=== PATIENT | female | born 1970 | race Caucasian/White ===

== ENCOUNTER 2019-04-17 05:49 | Day surgery (SDC) | payer OTHER ==
[2019-04-17] MEDS ORDERED: Lactated Ringers 1,000 ML IV SCH (07:00)
[2019-04-17] MEDS ORDERED: DIPRIVAN 200 MG/20 ML IV ONE (07:52)
[2019-04-17] MEDS ORDERED: Versed 2 MG/2 ML Injection ONE (07:52)
[2019-04-17 09:06] VITALS: O2SAT 100
[2019-04-17 09:22] VITALS: BP 112/64; PULSE 61
--- NOTE | 2019-04-17 10:36 | OP ---
SURGERY DATE/TIME: 04/17/2019 0754 PREOPERATIVE DIAGNOSIS: Screening exam. POSTOPERATIVE DIAGNOSIS: Normal colon. PROCEDURE: Colonoscopy. SURGEON: Dr. Mendoza. ANESTHESIA: MAC. Medications given by anesthesia department. HISTORY: The patient is a 48 year-old white female presenting now for screening colonoscopy. She was appraised of the risks of the procedure including the risk of perforation, phlebitis, untoward reaction to medication, bleeding and missed lesions. The patient verbalized her understanding and desired to have the procedure performed. DESCRIPTION OF PROCEDURE: The patient was given the medications by the anesthesia department. She had continuous pulse oximetry, ECG monitoring, intermittent blood pressure monitoring and tidal CO2 monitoring during the examination. She was placed in the left lateral decubitus position. A digital rectal examination was performed and revealed normal anal sphincter tone and no masses. External hemorrhoids were present. The flexible Olympus pediatric colonoscope was used to intubate the rectum. A view of the colon was developed sequentially to the cecum. Upon insertion and withdrawal, including a retroflex view in the rectum, no mucosal lesions were encountered. The scope was removed from the patient who tolerated the procedure well and was sent back to OP recovery in good condition. The prep was noted to be fair to good.
== END 2019-04-17 09:05 | disposition home or self-care (01) ==
LOC: SDC 05:49
PROVIDERS: ATTEND Family Medicine
DX: Z12.11 Encounter for screening for malignant neoplasm of colon (principal); K64.4 Residual hemorrhoidal skin tags
CPT/HCPCS: J2250; J2704

== ENCOUNTER 2024-10-07 02:20 | Emergency (ER) | payer SELFPAY ==
--- NOTE | 2024-10-07 02:26 | ERPHSYRPT ---
- History of Present Illness Time Seen by Provider: 10/07/24 02:25 Source: patient, family Exam Limitations: no limitations Physician History: This is a 53-year-old white female patient has a history of atrial fibrillation in the distant past. She states that she has 1-2 episodes per year where she feels palpitations and a "tickling in the throat". Usually it is very brief and short in duration. However she had another episode this morning that has lasted over 2 and half hours. Her heart rate on arrival to the emergency department was 155. We captured twelve-lead EKG with atrial fibrillation and RVR with a heart rate of 144. Patient does not have chest pain. She denies shortness of breath. The last time she was in the emergency department she was cardioverted then sent home at that visit. She was eventually seen by radio personality, Dr. Reza, and placed on Toprol. She did not like the way this medication made her feel and her radio personality gave the okay to stop this medication. The patient has not started any new medications. Timing/Duration: today Quality: other ("Tickle in the throat") Severity of Pain-Max: none Severity of Pain-Current: none Nitro Today/Relief: no nitro taken today Aspirin Treatment Today: no aspirin today Associated Symptoms: denies symptoms Prior Chest Pain/Cardiac Workup: no prior chest pain, no prior cardiac workup Allergies/Adverse Reactions: Penicillins Allergy (Verified 10/07/24 02:22) Rash Travel Risk - International Travel Have you traveled outside of the country in past 3 weeks: No - Emerging Infectious Disease Are you exhibiting symptoms associated with any current EIDs: No - Review of Systems Constitutional: No Symptoms Eyes: No Symptoms Ears, Nose, & Throat: No Symptoms Respiratory: No Symptoms Cardiac: Palpitations Abdominal/Gastrointestinal: No Symptoms Genitourinary Symptoms: No Symptoms Musculoskeletal: No Symptoms Skin: No Symptoms Neurological: No Symptoms Psychological: No Symptoms Endocrine: No Symptoms Hematologic/Lymphatic: No Symptoms Immunological/Allergic: No Symptoms All Other Systems: Reviewed and Negative - Past Medical History Neurological History: Other Cardiac History: Arrhythmia Respiratory History: No Pertinent History Endocrine Medical History: No Pertinent History Musculoskeletal History: Osteoarthritis Other Medical History: AFIB FOLLOWING STEROID USE. SKIN CANCER. - Past Surgical History Past Surgical History: Yes Neuro Surgical History: No Pertinent History Cardiac: No Pertinent History Respiratory: No Pertinent History Gastrointestinal: No Pertinent History Genitourinary: No Pertinent History Musculoskeletal: No Pertinent History Female Surgical History: Section, Lumpectomy, Other Other Surgical History: x3, ablation, left lumpectomy - Social History Drug Use: none - Nursing Vital Signs Nursing Vital Signs: Initial Vital Signs Temperature 98.0 F 10/07/24 02:22 Pulse Rate 141 H 10/07/24 02:22 Respiratory Rate 20 10/07/24 02:22 Blood Pressure 134/94 10/07/24 02:22 O2 Sat by Pulse Oximetry 100 10/07/24 02:22 Pain Scale Pain Intensity 0 - Physical Exam General Appearance: no apparent distress, alert, anxiety Eye Exam: PERRL/EOMI, eyes nml inspection Ears, Nose, Throat Exam: normal ENT inspection, moist mucous membranes Neck Exam: normal inspection, non-tender, supple, full range of motion Respiratory Exam: normal breath sounds, lungs clear, airway intact, No chest tenderness Cardiovascular Exam: tachycardia, irregular Gastrointestinal/Abdomen Exam: soft, normal bowel sounds, No tenderness Pelvic Exam: not done Rectal Exam: not done Back Exam: normal inspection, normal range of motion, No CVA tenderness, No vertebral tenderness Extremity Exam: normal inspection, normal range of motion, pelvis stable Neurologic Exam: alert, oriented x 3, cooperative, brake repair mechanic II-XII nml as tested, normal mood/affect, nml cerebellar function, nml station & gait, sensation nml Skin Exam: normal color, warm, dry Lymphatic Exam: No adenopathy SpO2 Interpretation: normal O2 Delivery: Room Air - Course Nursing assessment & vital signs reviewed: Yes EKG Interpreted by Me: RATE (144), A-fib, NORMAL AXIS, NORMAL INTERVALS, NORMAL QRS, Other (QTc is 464. No acute ischemic changes) Ordered Tests: Active Orders 24 hr Category Date Time Status Pulse Oximetry (ED) STAT Care 10/07/24 02:44 Active CBC W DIFF Stat Lab 10/07/24 02:49 Completed CMP Stat Lab 10/07/24 02:49 Completed MAGNESIUM Stat Lab 10/07/24 02:49 Completed NT PRO BNPII Stat Lab 10/07/24 02:49 Completed TROPONIN Q4H Lab 10/07/24 02:49 Completed TROPONIN Q4H Lab 10/07/24 06:45 Ordered TROPONIN Q4H Lab 10/07/24 10:45 Ordered TSH [TSH, 3RD Generation] Stat Lab 10/07/24 02:57 Completed UA W/RFX UR CULTURE Stat Lab 10/07/24 03:04 Completed Medication Summary Generic Name Dose Route Start Last Admin Trade Name Freq PRN Reason Stop Dose Admin Diltiazem HCl 100 mls @ 5 mls/hr 10/07/24 02:36 Cardizem Drip 100 Mg/100 Ml D5w IV 10/07/24 22:35 .Q20H STA Protocol 5 MG/HR Sodium Chloride 1,000 mls @ 75 mls/hr 10/07/24 02:45 10/07/24 02:50 Sodium Chloride 0.9% 1000 Ml IV 11/06/24 02:44 75 mls/hr .[id number] OJHNSON Administration Discontinued Medications Generic Name Dose Route Start Last Admin Trade Name Freq PRN Reason Stop Dose Admin Diltiazem HCl 20 mg 10/07/24 02:29 10/07/24 02:31 Diltiazem Hcl Iv 5 Mg/Ml Vial IV 10/07/24 02:30 20 mg STAT ONE Administration Diltiazem HCl Confirm 10/07/24 02:30 Diltiazem Hcl Iv 5 Mg/Ml Vial Administered 10/07/24 02:31 Dose 50 mg IV .STK-MED ONE Diltiazem HCl Confirm 10/07/24 02:38 Cardizem Drip 100 Mg/100 Ml D5w Administered 10/07/24 02:39 Dose 100 mls @ ud IV .STK-MED ONE Lab/Rad Data: Laboratory Result Diagrams 10/07/24 02:49 10/07/24 02:49 Laboratory Results 10/07/24 10/07/24 10/07/24 Range/Units 03:04 02:57 02:57 WBC (3.98-10.04) x10^3/uL RBC (3.93-5.22) x10^6/uL Hgb (11.2-15.7) g/dL Hct (34.1-44.9) % MCV (79.4-94.8) fL MCH (25.6-32.2) pg MCHC (32.2-35.5) g/dL RDW (11.7-14.4) % Plt Count (182-369) x10^3/uL MPV (9.4-12.3) fL Gran % (34.0-71.1) % Immature Gran % (Auto) (0.001-0.429) % Nucleat RBC Rel Count (0.00-0.2) % Eos # (Auto) (0.04-0.36) x10^3/uL Immature Gran # (Auto) (0.001-0.031) x10^3u/L Absolute Lymphs (auto) (1.18-3.74) x10^3/uL Absolute Monos (auto) (0.24-0.86) x10^3/uL Absolute Nucleated RBC (0.00-0.012) x10^3u/L Lymphocytes % (19.3-51.7) % Monocytes % (4.7-12.5) % Eosinophils % (0.7-5.8) % Basophils % (0.1-1.2) % Absolute Granulocytes (1.56-6.13) x10^3/uL Basophils # (0.01-0.08) x10^3/uL Sodium (135-145) mmol/L Potassium (3.5-5.1) mmol/L Chloride (98-107) mmol/L Carbon Dioxide (22-30) mmol/L Anion Gap (5-15) MEQ/L BUN (7-17) mg/dL Creatinine (0.52-1.04) mg/dL Estimated GFR ML/MIN Glucose (74-106) mg/dL Calcium (8.4-10.2) mg/dL Magnesium (1.6-2.3) mg/dL Total Bilirubin (0.2-1.3) mg/dL AST (14-36) U/L ALT (0-35) U/L Alkaline Phosphatase (38-126) U/L Troponin I (0.000-0.033) ng/mL NT-Pro-B Natriuret Pep (<300) pg/mL Serum Total Protein (6.3-8.2) g/dL Albumin (3.5-5.0) g/dL Free T4 1.19 (0.78-2.19) ng/dL TSH 3rd Generation 2.528 (0.470-4.680) mIU/L Urine Color Yellow (Yellow) Urine Appearance Clear (Clear) Urine pH 5.5 (4.6-8.0) Ur Specific [place] <=1.005 (1.005-1.030) Urine Protein Negative (Negative) Urine Glucose (UA) Negative (Negative) mg/dL Urine Ketones Negative (Negative) Urine Blood Negative (Negative) Urine Nitrite Negative (Negative) Urine Bilirubin Negative (Negative) Urine Urobilinogen 0.2 (0.2) mg/dL Ur Leukocyte Esterase Negative (Negative) U Hyaline Cast (Auto) NONE SEEN (0-2) /LPF Urine Microscopic RBC 0-2 (0-5) /HPF Urine Microscopic WBC 0-2 (0-5) /HPF Ur Epithelial Cells None Seen (None Seen) /HPF Urine Bacteria None Seen (None Seen) /HPF Urine Culture Reflexed NO (NO) 10/07/24 10/07/24 10/07/24 Range/Units 02:49 02:49 02:49 WBC 10.5 H (3.98-10.04) x10^3/uL RBC 5.10 (3.93-5.22) x10^6/uL Hgb 12.8 (11.2-15.7) g/dL Hct 39.9 (34.1-44.9) % MCV 78.2 L (79.4-94.8) fL MCH 25.1 L (25.6-32.2) pg MCHC 32.1 L (32.2-35.5) g/dL RDW 14.8 H (11.7-14.4) % Plt Count 230 (182-369) x10^3/uL MPV 11.1 (9.4-12.3) fL Gran % 63.7 (34.0-71.1) % Immature Gran % (Auto) 0.3 (0.001-0.429) % Nucleat RBC Rel Count 0.0 (0.00-0.2) % Eos # (Auto) 0.11 (0.04-0.36) x10^3/uL Immature Gran # (Auto) 0.03 (0.001-0.031) x10^3u/L Absolute Lymphs (auto) 3.08 (1.18-3.74) x10^3/uL Absolute Monos (auto) 0.54 (0.24-0.86) x10^3/uL Absolute Nucleated RBC 0.00 (0.00-0.012) x10^3u/L Lymphocytes % 29.4 (19.3-51.7) % Monocytes % 5.2 (4.7-12.5) % Eosinophils % 1.1 (0.7-5.8) % Basophils % 0.3 (0.1-1.2) % Absolute Granulocytes 6.68 H (1.56-6.13) x10^3/uL Basophils # 0.03 (0.01-0.08) x10^3/uL Sodium 138 (135-145) mmol/L Potassium 3.9 (3.5-5.1) mmol/L Chloride 101 (98-107) mmol/L Carbon Dioxide 22 (22-30) mmol/L Anion Gap 19.3 H (5-15) MEQ/L BUN 14 (7-17) mg/dL Creatinine 0.68 (0.52-1.04) mg/dL Estimated GFR 102.8 ML/MIN Glucose 127 H (74-106) mg/dL Calcium 9.7 (8.4-10.2) mg/dL Magnesium 1.9 (1.6-2.3) mg/dL Total Bilirubin 0.30 (0.2-1.3) mg/dL AST 29 (14-36) U/L ALT 20 (0-35) U/L Alkaline Phosphatase 84 (38-126) U/L Troponin I < 0.012 (0.000-0.033) ng/mL NT-Pro-B Natriuret Pep 47.6 (<300) pg/mL Serum Total Protein 7.6 (6.3-8.2) g/dL Albumin 4.8 (3.5-5.0) g/dL Free T4 (0.78-2.19) ng/dL TSH 3rd Generation (0.470-4.680) mIU/L Urine Color (Yellow) Urine Appearance (Clear) Urine pH (4.6-8.0) Ur Specific [place] (1.005-1.030) Urine Protein (Negative) Urine Glucose (UA) (Negative) mg/dL Urine Ketones (Negative) Urine Blood (Negative) Urine Nitrite (Negative) Urine Bilirubin (Negative) Urine Urobilinogen (0.2) mg/dL Ur Leukocyte Esterase (Negative) U Hyaline Cast (Auto) (0-2) /LPF Urine Microscopic RBC (0-5) /HPF Urine Microscopic WBC (0-5) /HPF Ur Epithelial Cells (None Seen) /HPF Urine Bacteria (None Seen) /HPF Urine Culture Reflexed (NO) - Progress Progress: improved, re-examined Air Movement: good Progress Note: 10/07/24 02:45 My medical decision making and the assignment of moderate to high complexity of this patient's medical issue today is based on review of the patient's past medical history, review the patient's medication list, review the patient drug allergy list, history present illness and physical findings on examination. The workup in this patient includes placement of intravenous line, infusion of a Cardizem bolus intravenously, CBC, CMP, magnesium level, BNP, troponin level. Differential diagnosis includes but is not limited to CHF, myocardial infarction, electrolyte abnormalities, arrhythmia, thyroid abnormalities Patient would prefer to only receive the Cardizem bolus intravenously followed by oral medication. We will monitor her closely and if a single IV Cardizem bolus is adequate to keep her heart rate around 90 to 100 bpm, at the time of admission, I will ask the telehospitalist if he wants the Cardizem drip or change to oral Cardizem. 10/07/24 02:53 I interpreted the second twelve-lead EKG that was performed on 10/07/2024 at 2:41 AM. This twelve-lead EKG was performed after the patient received 20 mg of intravenous Cardizem. Heart rate is 77 bpm. Pattern is atrial fibrillation. There is normal axis deviation, normal QRS and normal intervals. QTc is 413. There is no evidence of any acute ischemia 10/07/24 04:[address] Clark, our telehospitalist about the options of placing this patient in observation on a monitored bed with Cardizem drip and transitioning to oral long-acting Cardizem versus only oral long-acting Cardizem versus sending the patient home on long-acting oral Cardizem. The patient responded very well to a single intravenous bolus of Cardizem. Dr. Clark states that the patient can either be placed in observation or be discharged to home. He does not feel the patient absolutely has to be placed in the hospital in a monitored bed setting. 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 We will also order a Holter monitor for her to wear for 72 hours. Patient will contact her radio personality on 10/09/2024. Blood Culture(s) Obtained: No Counseled pt/family regarding: lab results, diagnosis Medical Desision Making - Independent Historian Additional History obtained from: Family - Diagnostic Testing Diagnostic test were ordered, analyzed, and reviewed by me: Yes - Risk of complications The pt has a mod risk of morbidity or mortality based on: Need for prescription drug management - Departure Departure Disposition: Home Clinical Impression: Atrial fibrillation with RVR Condition: Stable Critical Care Time: Yes Critical Care Time(excluding separately billable procedures): Critical 30-74 mins (45) Referrals: MARIA INES MARTINEZ NP [Primary Care Provider] - Follow up/PCP as directed Additional Instructions: Take your new prescriptions of Cardizem and Eliquis as prescribed. Return to the emergency department if there are any questions or concerns. Call your radio personality on 10/09/2024, in the morning, to make arranges for follow- up appointment for further evaluation management. Wear the Holter monitor and follow the directions for its use. Prescriptions: dilTIAZem HCL [Diltiazem 24Hr ER (Cd)] 120 mg PO DAILY #14 cap Apixaban [Eliquis 2.5 mg Tablet] 2.5 mg PO BID #28 tablet
[2024-10-07 02:29] VITALS: TEMP 98
[2024-10-07] MEDS ORDERED: Cardizem IV 50 MG/10 ML IV ONE (02:30)
[2024-10-07] MEDS: Cardizem IV 50 MG/10 ML IV ONE (02:31)
[2024-10-07] MEDS ORDERED: CARDIZEM DRIP 100 MG/100 ML D5W 0 ML IV ONE (02:38)
[2024-10-07] MEDS ORDERED: Sodium Chloride 0.9% 1000 ML 1,000 ML ONE (02:46)
[2024-10-07] MEDS: Sodium Chloride 0.9% 1000 ML 1,000 ML IV SCH (02:50)
[2024-10-07 02:52] LABS: Absolute Neutrophil Ct (ANC) 6.68 x10^3/uL (1.56-6.13); BASOPHIL % 0.3 % (0.1-1.2); Basophil (Absolute #) 0.03 x10^3/uL (0.01-0.08); Eosinophil % 1.1 % (0.7-5.8); Eosinophil (Absolute #) 0.11 x10^3/uL (0.04-0.36); Hematocrit 39.9 % (34.1-44.9); Hemoglobin 12.8 g/dL (11.2-15.7); IMMATURE GRAN # 0.03 x10^3u/L (0.001-0.031); IMMATURE GRAN % 0.3 % (0.001-0.429); Lymphocyte (Absolute #) 3.08 x10^3/uL (1.18-3.74); Lymphocytes % 29.4 % (19.3-51.7); Mean Cell Volume 78.2 fL (79.4-94.8); Mean Corpuscular Hemoglobin 25.1 pg (25.6-32.2); Mean Corpuscular Hgb Concent. 32.1 g/dL (32.2-35.5); Mean Platelet Volume 11.1 fL (9.4-12.3); Monocyte (Absolute #) 0.54 x10^3/uL (0.24-0.86); Monocytes % 5.2 % (4.7-12.5); Neutrophil % 63.7 % (34.0-71.1); Platelet Count 230 x10^3/uL (182-369); Red Cell Distribution Width 14.8 % (11.7-14.4); White Blood Count 10.5 x10^3/uL (3.98-10.04)
[2024-10-07 03:07] LABS: ALBUMIN 4.8 g/dL (3.5-5.0); ANION GAP 19.3 MEQ/L (5-15); BILIRUBIN,TOTAL 0.3 mg/dL (0.2-1.3); Calcium 9.7 mg/dL (8.4-10.2); Creatinine 1 0.68 mg/dL (0.52-1.04); EST GLOMERULAR FILTRATION RATE 102.8 ML/MIN; MAGNESIUM 1.9 mg/dL (1.6-2.3); Potassium 3.9 mmol/L (3.5-5.1); Total Protein 7.6 g/dL (6.3-8.2)
[2024-10-07 03:17] LABS: NT PRO BNPII 47.6 pg/mL (<300)
[2024-10-07 03:19] LABS: Appearance Clear (Clear); Bacteria None Seen /HPF (None Seen); Bilirubin Negative (Negative); Blood Negative (Negative); Epithelial Cells None Seen /HPF (None Seen); Glucose, Urine Negative (Negative); Hyaline Casts NONE SEEN /LPF (0-2); Ketones Negative (Negative); Leukocyte Esterase Negative (Negative); Nitrite Negative (Negative); Ph 5.5 (4.6-8.0); Protein,Urine Dip Negative (Negative); RBC 0-2 /HPF (0-5); Specific Gravity <=1.005 (1.005-1.030); Urobilinogen 0.2 mg/dL (0.2); WBC 0-2 /HPF (0-5)
[2024-10-07 03:19] LABS: TROPONIN < 0.012 ng/mL (0.000-0.033)
[2024-10-07 03:25] VITALS: O2SAT 99
[2024-10-07] MEDS: ELIQUIS 2.5 MG TABLET PO ONE (04:46)
[2024-10-07] MEDS: Cardizem CD PO ONE (04:47)
[2024-10-07] MEDS: CARDIZEM DRIP 100 MG/100 ML D5W 100 ML IV STA (04:56)
[2024-10-07 05:07] VITALS: BP 112/82; PULSE 80; RESP 18
== END 2024-10-07 05:05 | disposition home or self-care (01) ==
LOC: ED 02:20
DX: I48.20 Chronic atrial fibrillation, unspecified (principal); Z79.01 Long term (current) use of anticoagulants; Z79.899 Other long term (current) drug therapy
CPT/HCPCS: 36415; 80053; 81001; 83735; 83880; 84439; 84443; 84484; 85025; 93005; 94760; 96361; 96374; 99284; 99285; 99291; A9270-GY